=== PATIENT | female | born 1970 | race American Indian/Alaskan Native ===

== ENCOUNTER 2016-12-17 09:31 | Emergency (ER) | payer SELFPAY ==
--- NOTE | ~2016-12-17 | CT4 ---
[facility] A Service of [facility] & [facility] RADIOLOGY TEXT RESULTS PATIENT: EARL ALBA LOCATION: SED : 70 UNIT #: [id number] AGE: [address]: Lee Bright MD SEX: F ORDER DR: [id number] [address] [address] [id number] MR#: [id number] Acc #: [id number] NAME: EARL ALBA : 1970 SEX: F STUDY DATE/TIME: 12/17/2016 10:32 UNIT: SED ROOM: STUDY DESCRIPTION: CT Abd and Pelv Wo Cont Attending Physician: Lee Bright M.D. Ordering Physician: Lee Bright M.D. Primary Care Physician: Juan R Tellez M.D. MEDICAL IMAGING REPORT This report is preliminary unless electronic signature is present. EXAMINATION CT abdomen and pelvis without contrast. DATE 12/17/2016 HISTORY 46-year-old female with abdominal pain and nausea. Pain greatest in the upper quadrant for 2 days. Elevated urine leukocytosis. Additional history of cholecystectomy. Diabetes. COMPARISON Pelvic ultrasound, 09/08/2015. Right upper quadrant abdominal ultrasound, 08/26/2015. PROCEDURE 3 mL axial images through the abdomen and pelvis without contrast. This CT exam was performed with one or more of the following radiation dose reduction techniques: automatic exposure control, adjustment of mA and/or kV according to patient size, and iterative reconstruction. Sagittal and coronal reformatted images were obtained. Enteric contrast was not administered. Abdomen findings: The liver is enlarged up to 20.7 cm craniocaudally and is markedly and diffusely steatotic. Cholecystectomy changes are present. Common bile duct caliber is within normal limits. The spleen, pancreas, adrenals and kidneys are within normal limits. There is band-like scarring or atelectasis in the lingula. No basilar consolidations are identified. Benign calcified granuloma is present in the left lower lobe. Spleen, pancreas, adrenals and kidneys have a normal noncontrast appearance. The appendix is normal. Bowel appears nonthickened and noninflamed. [facility] A Service of [facility] & [facility] RADIOLOGY TEXT RESULTS PATIENT: EARL ALBA LOCATION: [facility] [place] : [birth year] UNIT #: [id number] AGE: [address]: Lee Bright MD SEX: F ORDER DR: Pelvis findings: Bilateral tubal ligation. Urinary bladder and rectum are normal. No pelvic adenopathy or free fluid. Bilateral pelvic phleboliths are noted. Left L5-S1 facet arthropathy. No acute osseous abnormalities are identified. IMPRESSION 1. No acute findings in the abdomen and pelvis. 2. Hepatomegaly with diffuse hepatic steatosis. 3. No urinary tract stone or hydronephrosis. Appendix is normal. 4. Bilateral tubal ligation. 5. Mild scarring or subsegmental atelectasis in the lingular segment of left upper lobe. Dictated by... Maricel King M.D. THIS IS AN ELECTRONICALLY VERIFIED REPORT Maricel King M.D. at 12/20/2016 8:48 AM STACEY/sachin TD: 12/17/2016 13:42 JOB #: [id number] MEDICAL IMAGING REPORT Page 1 of 1
[~2016-12-17 09:31] MED LIST: CELEBREX50 MG PO; DOXYCYCLINE150 MG PO; LORTAB 5/500 TA1 TA1 PO; METFORMIN HCL500 M1 PO; ORUDIS75 M1 PO; PHENERGAN DM1 ML PO; SIMVASTATIN10 MG PO; ZANTAC15 MG/M1 PO; ZESTRIL5 MG PO
[2016-12-17 09:56] LABS: URINE SOURCE CLEAN CATCH
[2016-12-17 09:58] LABS: URINE BILIRUBIN NEG (NEG); URINE BLOOD 1+ (NEG); URINE COLOR YELLOW; URINE GLUCOSE 300 MG/DL (NORM); URINE KETONE NEG (NEG); URINE LEUKOCYTE ESTERASE 1+ (NEG); URINE NITRATE NEG (NEG); URINE PH 5.5 (5-8); URINE PROTEIN TRACE (NEG); URINE SPECIFIC GRAVITY 1.025 (1.003-1.035); URINE UROBILINOGEN 0.2 MG/DL (NORM)
[2016-12-17 10:00] LABS: MICRO INDICATED? YES; URINE APPEARANCE SL HAZY
[2016-12-17 10:11] LABS: BASOPHIL# 0.1 X10e3 (0-0.3); BASOPHIL% 1.1 % (0-2.5); EOSINOPHIL# 0.2 X10e3 (0-0.7); EOSINOPHIL% 2.5 % (0.0-7.0); HEMATOCRIT 41.7 % (35.0-45.0); HEMOGLOBIN 13.9 gm/dL (12.0-16.0); LYMPHOCYTE# 3.4 X10e3 (1.0-3.5); LYMPHOCYTE% 35.7 % (17.0-45.0); MEAN CELL VOLUME 90.1 FL (83-96); MEAN CORPUSCULAR HEMOGLOBIN 30.1 PG (28-34); MEAN CORPUSCULAR HGB CONC 33.4 g/dL (30-36); MEAN PLATELET VOLUME 8.3 FL (6.5-11.5); MONOCYTE# 0.4 X10e3 (0-1.0); MONOCYTE% 4.1 % (3.0-12.0); NEUTROPHIL# 5.4 X10e3 (1.5-7.1); NEUTROPHIL% 56.6 % (40-75); PLATELET COUNT 295 X10e3 (140-420); RED BLOOD COUNT 4.62 X10e (3.90-5.30); RED CELL DISTRIBUTION WIDTH 13.6 % (11.0-15.5); WHITE BLOOD COUNT 9.5 X10e3 (4.0-10.5)
[2016-12-17 10:13] LABS: CULTURE INDICATED? YES; URINE BACTERIA 2+ (NEG); URINE SQUAMOUS EPITHELIAL CELL MANY /[HPF]; URINE TRICHOMONAS PRESENT; URINE WBC 25-50 /[HPF] (0-5)
[2016-12-17 10:21] LABS: DIFF IND NO
[2016-12-17 10:38] LABS: ALBUMIN SERUM 3.5 g/dL (3.5-5.0); BILIRUBIN, DIRECT 0.1 mg/dL (0.0-0.2); BILIRUBIN,INDIRECT 0.5 mg/dL (0.0-0.9); BILIRUBIN,TOTAL 0.6 mg/dL (0.2-2.0); BUN/CREATININE RATIO 12.85; CALCIUM SERUM 8.6 mg/dL (8.4-10.2); CREATININE SERUM 0.7 mg/dL (0.6-1.4); GLOM FILT RATE Estimated 103.9 mL/min (>60); POTASSIUM 3.8 mmol/L (3.5-5.1); PROTEIN TOTAL SERUM 6.8 g/dL (6.0-8.3)
== END 2016-12-17 13:44 | disposition home or self-care (01) ==
LOC: SED 09:31
PROVIDERS: Emergency Medicine
DX: K85.90 Acute pancreatitis without necrosis or infection, unspecified (principal); R19.7 Diarrhea, unspecified; E11.9 Type 2 diabetes mellitus without complications; F17.200 Nicotine dependence, unspecified, uncomplicated; Z98.51 Tubal ligation status; Z79.899 Other long term (current) drug therapy
CPT/HCPCS: 36415; 74176; 80048; 80076; 81003; 82150; 83690; 84703; 85025; 87086; 96361; 96374; 96375; 96376; 99284; J1170; J2405; J2550